=== PATIENT | male | born 1965 | race Caucasian/White ===

== ENCOUNTER 2021-07-18 17:25 | Emergency (ER) | payer MEDICARE, BC, SELFPAY ==
[2021-07-18 17:27] VITALS: BP 148/98; PULSE 96; RESP 20; TEMP 37; O2SAT 98; BMI 37.8
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
[2021-07-18 17:45] LABS: Basophils # 0.2 K/mm3 (0-0.2); Basophils % 1.6 % (0.1-2.0); Eosinophils # 0.2 K/mm3 (0.0-0.4); Eosinophils % 1.5 % (0.1-12.0); Hematocrit 52.6 % (42.0-52.0); Hemoglobin 16.8 g/dL (14.1-18.0); Lymphocytes # 1.9 K/mm3 (0.7-4.5); Lymphocytes % 18.3 % (10-50); Mean Corpuscular HGB Conc 31.9 g/dL (31.8-35.4); Mean Corpuscular Hemoglobin 33.8 pg (27.0-31.2); Mean Corpuscular Volume 105.8 fl (80-94); Mean Platelet Volume 7.7 fl (7.4-10.4); Monocytes # 0.4 K/mm3 (0.1-1.0); Neutrophils # 7.9 K/mm3 (1.8-7.8); Neutrophils % 74.7 % (37.0-80.0); Platelet Count 505 K/mm3 (142-424); Red Blood Count 4.97 M/mm3 (4.60-6.20); White Blood Count 10.5 K/mm3 (4.8-10.8)
[2021-07-18 17:47] LABS: Chloride 100 mmol/L (98-107); Potassium 3.8 mmoL/L (3.5-5.1); Sodium 137 mmol/L (136-145)
[2021-07-18 17:50] LABS: Alanine Aminotransferase 26 U/L (12-78); Albumin Level 4.7 g/dl (3.5-5.0); Albumin/Globulin Ratio 1.6 (1.1-1.8); Alkaline Phosphatase 98 U/L (38-126); Anion Gap 18.8 mEq/L (5-15); Aspartate Amino Transferase 38 U/L (17-59); Bilirubin,Total 0.4 mg/dl (0.2-1.3); Blood Urea Nitrogen 11 mg/dl (9-20); Carbon Dioxide 22 mmol/L (22.0-30.0); Creatinine Clearance Estimated 118 mL/min (50-200); Estimated Glomerular Filt Rate 78 ml/min (>60); GFR (African American) 94 ML/MIN (>60); Glucose 116 mg/dl (74-100); Total Protein,Serum 7.7 g/dl (6.3-8.2)
[2021-07-18 18:15] LABS: Ethyl Alcohol 179 mg/dl (0-10)
[2021-07-18 20:22] VITALS: BP 131/71; PULSE 75; RESP 17; O2SAT 100
[2021-07-18 20:33] VITALS: BP 140/85; PULSE 118; RESP 17; O2SAT 94
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
[2021-07-18 21:12] VITALS: BP 145/94; PULSE 121; O2SAT 94
[2021-07-18 21:54] VITALS: BP 132/80; PULSE 100
[2021-07-18 22:28] VITALS: BP 132/80; PULSE 108; RESP 20; TEMP 36.7; O2SAT 96
== END 2021-07-18 22:32 ==
PROVIDERS: Emergency Medicine; Emergency Provider Emergency Medicine
DX: S00.03XA Contusion of scalp, initial encounter (principal); S61.216A Laceration without foreign body of right little finger without damage to nail, initial encounter; S66.821A Laceration of other specified muscles, fascia and tendons at wrist and hand level, right hand, initial encounter; Y04.0XXA Assault by unarmed brawl or fight, initial encounter; Y92.019 Unspecified place in single-family (private) house as the place of occurrence of the external cause
CPT/HCPCS: 12001; 29125; 70450; 72125; 73130; 74177; 80053; 85025; 96374; 99283; J2405